=== PATIENT | female | born 1950 | race Hispanic/Latino ===

== ENCOUNTER → 2018-12-09 | Outpatient (CLI) | payer OTHER ==
[~2018-12-09] VITALS: Ht 162.6 cm; Wt 64.4 kg
[~2018-12-09] MED LIST: REGADENOSON 0.4 MG/5 ML PF SYG IVP SCH
== END | disposition home or self-care (01) ==
LOC: SHCH 07:36
PROVIDERS: ATTEND Internal Medicine Cardiovascular Disease
DX: I25.2 Old myocardial infarction (principal)
CPT/HCPCS: 78452; 93017; 96374; A9500 ×2; J2785

== ENCOUNTER 2022-06-16 12:00 | Inpatient (IN) | payer OTHER, MEDICARE ==
[~2022-06-16] VITALS: Ht 154.9 cm; Wt 54.4 kg
[2022-06-16 12:59] LABS: BASOPHILS % (AUTO) 0.2 % (0.0-5.0); EOSINOPHILS % (AUTO) 0.1 % (0.0-8.0); HEMATOCRIT 44.2 % (36-48); LYMPHOCYTES % (AUTO) 12.1 % (21.0-51.0); MEAN CORPUSCULAR HEMOGLOBIN 29.1 pg (27.0-33.0); MEAN CORPUSCULAR HGB CONC 33.5 g/dL (32.0-36.0); MEAN CORPUSCULAR VOLUME 86.8 fL (79-99); MONOCYTES % (AUTO) 3.9 % (3.0-13.0); NEUTROPHILS % (AUTO) 83.2 % (40.0-77.0); PLATELET COUNT (AUTO) 292 K/uL (130-400); RED BLOOD CELL COUNT(AUTO) 5.09 MIL/uL (4.00-5.50); RED CELL DISTRIBUTION WIDTH 14.1 % (11.0-15.5); WHITE BLOOD COUNT (AUTO) 13.3 K/uL (4.8-10.8)
[2022-06-16 13:03] LABS: CREATININE 0.6 mg/dL (0.5-1.5); POTASSIUM 3.5 mmol/L (3.5-5.1)
[2022-06-16 13:59] LABS: APPEARANCE,URINE CLEAR (CLEAR); BILIRUBIN,URINE NEGATIVE (NEGATIVE); COLOR,URINE LIGHT-YELLOW (YELLOW); GLUCOSE, URINE (UA) >=1000 mg/dL (NEGATIVE); KETONES,URINE 10 mg/dL (NEGATIVE); LEUKOCYTE ESTERASE ,URINE NEGATIVE Leu/uL (NEGATIVE); NITRATE,URINE NEGATIVE (NEGATIVE); OCCULT BLOOD,URINE NEGATIVE (NEGATIVE); PROTEIN,URINE NEGATIVE (NEGATIVE); UROBILINOGEN,URINE 0.2 mg/dL (0.2-1.0)
[2022-06-16 14:02] LABS: INR 0.97 (0.85-1.15); PROTHROMBIN TIME 10.6 SEC (9.6-11.6); RBC,URINE 0-1 /HPF (0-1); SQUAMOUS EPITHELIAL CELL,UR RARE /HPF (0-2)
[2022-06-16 14:03] LABS: PARTIAL THROMBOPLASTIN TIME 26.8 SEC (26.3-35.5)
[2022-06-16 14:40] VITALS: BP 142/61
[2022-06-16] MEDS ORDERED: METF-444 PO (15:54)
[2022-06-16] MEDS ORDERED: AEC81 PO (15:54)
[2022-06-16] MEDS ORDERED: DAPA10TA PO (15:54)
[2022-06-16] MEDS ORDERED: ATOR10 PO (15:54)
[2022-06-16] MEDS ORDERED: LISI10TA24 PO (15:54)
[2022-06-16] MEDS ORDERED: OMEP20CA12 PO (15:54)
[2022-06-16] MEDS ORDERED: METH8TAB6 PO (15:54)
[2022-06-17] VITALS (23 sets, daily range): BP systolic 115–200; BP diastolic 52–81
[2022-06-17] MEDS ORDERED: 0.9%NACL 1000ML 1,000 ML IV ONE (06:37)
[2022-06-17] MEDS: CEFAZOLIN SODIUM 1 GM VIAL IVP SCH ×2 (06:50→10:59)
[2022-06-17] MEDS ORDERED: SUCCINYLCHOLINE CHLORIDE 20 MG/ML 10 ML VIAL ONE (07:57)
[2022-06-17] MEDS ORDERED: LIDOCAINE PF 100MG/5ML (2%) SYRINGE 5ML ONE (07:57)
[2022-06-17] MEDS ORDERED: DEXAMETHASONE SOD PHOSPHATE 10MG/ML 1ML VIAL ONE (07:57)
[2022-06-17] MEDS ORDERED: NEOSTIGMINE 5MG/5ML SYR IV ONE (08:00)
[2022-06-17] MEDS ORDERED: PROPOFOL 10 MG/ML 20ML VIAL IV ONE (08:00)
[2022-06-17] MEDS ORDERED: FENTANYL CITRATE PF 50 MCG/1 ML 2ML VIAL ONE ×2 (08:00→11:23)
[2022-06-17] MEDS ORDERED: GLYCOPYRROLATE 1 MG/5 ML SYRINGE ONE (08:00)
[2022-06-17] MEDS ORDERED: ONDANSETRON 4MG INJ ONE ×2 (08:00→13:01)
[2022-06-17] MEDS ORDERED: MIDAZOLAM HCL 1 MG/ML 2ML VIAL ONE (08:01)
[2022-06-17] MEDS ORDERED: ROCURONIUM 10MG/1ML SYR 10 MG/ML ML ONE (08:01)
[2022-06-17] MEDS ORDERED: PHENYLEPHRINE HCL 10 MG/ML 1ML VIAL IV ONE (12:08)
[2022-06-17] MEDS ORDERED: HYDRALAZINE 20MG/ML VIAL ONE (13:05)
[2022-06-17] MEDS ORDERED: BISACODYL 10 MG SUPP.RECT RC PRN (14:00)
[2022-06-17] MEDS ORDERED: PROMETHAZINE HCL 25 MG/ML 1ML AMPULE IM PRN (14:00)
[2022-06-17] MEDS ORDERED: IBUPROFEN 600 MG TABLET PO PRN (14:00)
[2022-06-17] MEDS: LACTATED RINGERS 1000ML 1,000 ML IV SCH ×2 (14:08→22:10)
[2022-06-17] MEDS: PROMETHAZINE HCL 25 MG/ML 1ML AMPULE IM PRN (15:00)
[2022-06-17] MEDS: MEPERIDINE-PF 75 MG/ML SYG IM PRN (15:01)
[2022-06-17] MEDS: INSULIN HUMULIN R 100 UNIT/ML 3ML SQ SCH ×2 (16:30→21:00)
[2022-06-18] MEDS: PROMETHAZINE HCL 25 MG/ML 1ML AMPULE IM PRN (02:16)
[2022-06-18] MEDS: MEPERIDINE-PF 75 MG/ML SYG IM PRN (02:17)
[2022-06-18 02:32] VITALS: BP 125/63
[2022-06-18 05:05] LABS: HEMATOCRIT 38.9 % (36-48); MEAN CORPUSCULAR HEMOGLOBIN 28.8 pg (27.0-33.0); MEAN CORPUSCULAR HGB CONC 32.4 g/dL (32.0-36.0); RED BLOOD CELL COUNT(AUTO) 4.37 MIL/uL (4.00-5.50); RED CELL DISTRIBUTION WIDTH 14.2 % (11.0-15.5); WHITE BLOOD COUNT (AUTO) 16.4 K/uL (4.8-10.8)
[2022-06-18] MEDS: LACTATED RINGERS 1000ML 1,000 ML IV SCH (05:53)
[2022-06-18] MEDS ORDERED: ACETAMINOPHEN WITH CODEINE 1 TAB TAB PO PRN (06:00)
[2022-06-18] MEDS ORDERED: BISACODYL 10 MG SUPP.RECT RC PRN (06:00)
[2022-06-18] MEDS ORDERED: HYDROCODONE/ACETAMINOPHEN 5/325 MG TAB PO PRN (06:00)
[2022-06-18] MEDS: INSULIN HUMULIN R 100 UNIT/ML 3ML SQ SCH ×4 (06:35→21:22)
[2022-06-18 07:51] VITALS: BP 132/65
[2022-06-18] MEDS: SIMETHICONE 80 MG TAB.CHEW PO PRN ×2 (08:28→20:57)
[2022-06-18] MEDS: DOCUSATE SODIUM 100 MG CAP PO PRN ×2 (08:28→20:57)
[2022-06-18] MEDS: IBUPROFEN 800 MG TAB PO PRN ×2 (08:28→18:09)
[2022-06-18] MEDS ORDERED: SIMETHICONE 80 MG TAB.CHEW PO PRN (09:00)
[2022-06-18] MEDS ORDERED: DOCUSATE SODIUM 100 MG CAP PO PRN (09:00)
[2022-06-18 12:03] VITALS: BP 141/63
[2022-06-18 16:43] VITALS: BP 133/62
[2022-06-18 19:11] VITALS: BP 142/68
[2022-06-18 23:14] VITALS: BP 124/58
[2022-06-19 04:03] VITALS: BP 131/59
[2022-06-19 07:26] VITALS: BP 159/78
[2022-06-19] MEDS: INSULIN HUMULIN R 100 UNIT/ML 3ML SQ SCH (07:30)
[2022-06-19] MEDS: IBUPROFEN 800 MG TAB PO PRN (09:08)
[2022-06-19] MEDS: DOCUSATE SODIUM 100 MG CAP PO PRN (09:08)
[2022-06-19] MEDS: SIMETHICONE 80 MG TAB.CHEW PO PRN (09:08)
== END 2022-06-19 12:50 | disposition home or self-care (01) | DRG 747 ==
LOC: DAHIP 06-17 05:32 → WSH 06-17 13:40
PROVIDERS: ADMIT Obstetrics & Gynecology; ATTEND Obstetrics & Gynecology
PROC: 0JQC0ZZ Repair Pelvic Region Subcutaneous Tissue and Fascia, Open Approach (ICD-10-PCS; principal; 2022-06-17 11:21)
PROC: 0UBG0ZZ Excision of Vagina, Open Approach (ICD-10-PCS; 2022-06-17 11:21)
PROC: 0JQC0ZZ Repair Pelvic Region Subcutaneous Tissue and Fascia, Open Approach (ICD-10-PCS; 2022-06-17 11:21)
DX: N81.10 Cystocele, unspecified (principal); N81.6 Rectocele; Z20.822 Contact with and (suspected) exposure to COVID-19; E11.9 Type 2 diabetes mellitus without complications; I10 Essential (primary) hypertension; E78.5 Hyperlipidemia, unspecified; I25.2 Old myocardial infarction; Z90.49 Acquired absence of other specified parts of digestive tract; Z90.710 Acquired absence of both cervix and uterus; Z90.12 Acquired absence of left breast and nipple
CPT/HCPCS: 36415; 80048; 81001; 82948; 85025; 85027; 85610; 85730; 86850; 86900; 86901; 87426; 93005; A4344; A4351; A4606; G0378; J0330; J0360; J0690; J1100; J1815; J2001; J2175; J2250; J2370; J2405; J2550; J2704; J2710; J3010; J3490; J7030; J7120